=== PATIENT | male | born 1980 | race Hispanic/Latino ===

== ENCOUNTER 2024-08-18 12:28 | Outpatient (CLI) | payer OTHER ==
[2024-08-18 13:12] LABS: #Basophils 0.04 10x3/uL (0.0-0.2); %Basophils 0.6 % (0.0-1.0); %Eosinophils 1.1 % (0.0-10.0); %Lymphocytes 26.6 % (21.0-51.0); %Neutrophils 62.3 % (42.0-75.0); Hematocrit 41.3 % (42.0-52.0); Hemoglobin 14.2 g/dL (14.0-18.0); Mean Corpuscular HGB CONC 34.4 g/dL (32.0-36.0); Mean Corpuscular Hemoglobin 30.9 pg (27.0-31.0); Mean Platelet Volume 8.8 fL (7.4-10.4); Platelet Count 229 10x3/uL (130-400); RBC Distribution Width 13.5 % (11.5-14.5); Red Blood Cell (RBC) Count 4.59 mill/uL (4.70-6.10)
== END 2024-08-18 12:29 | disposition home or self-care (01) ==
LOC: LABBT 12:28
PROVIDERS: ATTEND Orthopaedic Surgery
DX: Z01.812 Encounter for preprocedural laboratory examination (principal); S62.92XA Unspecified fracture of left hand, initial encounter for closed fracture
CPT/HCPCS: 85025

== ENCOUNTER 2024-08-20 09:55 | Day surgery (SDC) | payer OTHER ==
[2024-08-18 12:52] VITALS: BMI 39.1
[2024-08-20] MEDS ORDERED: Lidocaine 1% (PF) 30 ML VIAL ONE (10:40)
[2024-08-20] MEDS ORDERED: Bacitracin Zinc Ointment 30 gm TUBE ONE (10:40)
[2024-08-20] MEDS ORDERED: PROPOFOL 20 ML ONE (10:50)
[2024-08-20] MEDS ORDERED: Sodium Chloride 0.9% 100 ML ONE (10:54)
[2024-08-20] MEDS ORDERED: Ketamine In 0.9 % NaCl 50 MG/5 ML SYRINGE ONE (10:54)
[2024-08-20] MEDS ORDERED: CEFAZOLIN 2 GM VIAL ONE (10:54)
[2024-08-20] MEDS ORDERED: fentaNYL PF 100 MCG/2 ML SYRINGE ONE ×2 (11:01→12:11)
[2024-08-20] MEDS ORDERED: Midazolam HCl 2 mg/2 ml Vial ONE (11:02)
[2024-08-20] MEDS ORDERED: Ondansetron PF 4 MG/2 ML Vial ONE (11:17)
[2024-08-20] MEDS ORDERED: Glycopyrrolate 0.2 MG/ML 5 ML SYRINGE ONE (11:17)
== END 2024-08-20 13:49 | disposition home or self-care (01) ==
LOC: SDC 09:55
PROVIDERS: ATTEND Orthopaedic Surgery
DX: S62.639B Displaced fracture of distal phalanx of unspecified finger, initial encounter for open fracture (principal); S69.92XA Unspecified injury of left wrist, hand and finger(s), initial encounter; X58.XXXA Exposure to other specified factors, initial encounter
CPT/HCPCS: A6223; J2250; J2405; J2704; J3490